=== PATIENT | male | born 1995 | race Caucasian/White ===

== ENCOUNTER 2019-07-22 08:46 | Emergency (ER) | payer OTHER, SELFPAY ==
--- NOTE | 2019-07-22 09:45 | CT ---
EXAM: CT of the cervical spine without contrast HISTORY: Head injury with neck pain COMPARISON: None TECHNIQUE: Multiple contiguous axial images were obtained in a CT of the cervical spine without contr ast. Sagittal and coronal reformats were performed. FINDINGS: The vertebral bodies and intervertebral discs demonstrate normal height and alignment witho ut fracture or subluxation. No degenerative changes are present. No prevertebral soft tissue swelling is seen. The posterior facets are well aligned. Normal alignment of the skull base with the cervical spine is seen. The lung apices and cervical soft tissues are unremarkable. IMPRESSION: No evidence of acute osseous abnormality of the cervical spine.
--- NOTE | 2019-07-22 10:44 | CT ---
CT HEAD NONCONTRAST: Date: 07/22/19 INDICATION: Post-traumatic pain. FINDINGS: There is no acute intracranial hemorrhage, mass effect, or midline shift. Calvarium is intact. No flu id level of paranasal sinuses. IMPRESSION: No acute intracranial hemorrhage or mass effect. POS: [facility]
== END 2019-07-22 10:46 | disposition home or self-care (01) ==
LOC: ERS 08:46
DX: S09.90XA Unspecified injury of head, initial encounter (principal); S16.1XXA Strain of muscle, fascia and tendon at neck level, initial encounter; W20.8XXA Other cause of strike by thrown, projected or falling object, initial encounter
CPT/HCPCS: 70450; 72125